=== PATIENT | female | born 1985 | race Caucasian/White ===

== ENCOUNTER 2021-02-02 22:13 | Emergency (ER) | payer OTHER ==
[~2021-02-02] VITALS: Ht 170.2 cm; Wt 95.4 kg
[2021-02-02 22:38] VITALS: BP 153/83
[2021-02-03] MEDS ORDERED: CEPH500C PO (00:22)
--- NOTE | 2021-02-03 00:25 | PHYS DOC ---
General Adult EDM: Chief Complaint: SKIN RASH/ABSCESS HPI: HPI: Patient is a 35 year old female present with the chief complaint of canine hook worm infection. Symptoms x 1 week. Located arms chest and face. Associated itch. On exam patient has multiple lesions of varying age acute and scabbing primarily arms. Several of the wounds have surrounding erythema. Patient has been seen by another provider and placed on medicines for scabies. Review of Systems: Review of Systems: Constitutional: Denies fever or chills. [] Eyes: Denies change in visual acuity. [] HENT: Denies nasal congestion or sore throat. [] Respiratory: Denies cough or shortness of breath. [] Cardiovascular: Denies chest pain or edema. [] GI: Denies abdominal pain, nausea, vomiting, bloody stools or diarrhea. [] : Denies dysuria. [] Musculoskeletal: Denies back pain or joint pain. [] Integument: Denies rash. [positive wounds and cellulitis] Neurologic: Denies headache, focal weakness or sensory changes. [] Endocrine: Denies polyuria or polydipsia. [] Lymphatic: Denies swollen glands. [] Psychiatric: Denies depression or anxiety. [] Heart Score: C/O Chest Pain: N/A Risk Factors: Risk Factors: DM, Current or recent (<one month) smoker, HTN, HLP, family history of CAD, obesity. Risk Scores: Score 0 - 3: 2.5% MACE over next 6 weeks - Discharge Home Score 4 - 6: 20.3% MACE over next 6 weeks - Admit for Clinical Observation Score 7 - 10: 72.7% MACE over next 6 weeks - Early Invasive Strategies Physical Exam: PE: Constitutional: Well developed, well nourished, no acute distress, non-toxic appearance. [] HENT: Normocephalic, atraumatic, bilateral external ears normal, oropharynx moist, no oral exudates, nose normal. [] Eyes: PERRLA, EOMI, conjunctiva normal, no discharge. [] Neck: Normal range of motion, no tenderness, supple, no stridor. [] Cardiovascular:Heart rate regular rhythm, no murmur [] Lungs & Thorax: Bilateral breath sounds clear to auscultation [] Abdomen: Bowel sounds normal, soft, no tenderness, no masses, no pulsatile masses. [] Skin: Warm, dry, no erythema, no rash. [multiple lesions of varying age acute and scabbing primarily arms. Several of the wounds have surrounding erythema. no abscess ] Back: No tenderness, no CVA tenderness. [] Extremities: No tenderness, no cyanosis, no clubbing, ROM intact, no edema. [] Neurologic: Alert and oriented X 3, normal motor function, normal sensory function, no focal deficits noted. [] Psychologic: Affect normal, judgement normal, mood normal. [] EKG: EKG: [] Radiology/Procedures: Radiology/Procedures: [] Course & Med Decision Making: Course & Med Decision Making Pertinent Labs and Imaging studies reviewed. (See chart for details) []Will Rx keflex. Lazaro Disclaimer: Lazaro Disclaimer: This electronic medical record was generated, in whole or in part, using a voice recognition dictation system. Departure Departure Impression: Primary Impression: Cellulitis Disposition: HOME / SELF CARE / HOMELESS Condition: STABLE Referrals: NO PCP (PCP) Patient Instructions: Cellulitis Scripts Cephalexin (CEPHALEXIN) 500 Mg Capsule 1 CAP PO QID, #40 CAP Prov: RADHA ASKEW DO 02/03/21 RADHA ASKEW DO Feb 03, 2021 00:25
== END 2021-02-03 00:40 | disposition home or self-care (01) ==
LOC: ER 22:13
DX: L03.211 Cellulitis of face (principal); L03.313 Cellulitis of chest wall; L03.119 Cellulitis of unspecified part of limb
CPT/HCPCS: 99283